=== PATIENT | female | born 1960 | race Caucasian/White ===

== ENCOUNTER 2019-02-10 08:03 | Outpatient (CLI) | payer BC ==
--- NOTE | 2019-02-10 09:13 | MMO ---
Bilateral MAMMO Bilat Diag DDI+LJ. CLINICAL HISTORY: Patient is 58 years old and is seen for diagnostic exam. The patient has the following family history of breast cancer: paternal aunt. The patient has a history of lobular carcinoma in November,; Excisional Biopsy procedure revealed invasive mammary carcinoma with lobular features in the left breast in November, and invasive mammary carcinoma with lobular features in the left breast in October,. The patient has a history of right Breast reduction in August,, left Ultrasound Guided Core Biopsy in October, - malignant and left Lumpectomy in October, - malignant. VIEWS: The views performed were: bilateral craniocaudal with tomosynthesis; bilateral mediolateral oblique with tomosynthesis; and bilateral mediolateral. FILMS COMPARED: The present examination has been compared to prior imaging studies performed at [facility] on 08/02/2014, 11/08/2015, 11/14/2015 and 11/10/2016, and at [facility] on 01/22/2018. MAMMOGRAM FINDINGS: The breasts are heterogeneously dense, which could obscure a lesion on mammography. There are stable post operative changes seen in both breasts. There are no suspicious masses, suspicious calcifications, or new areas of architectural distortion. IMPRESSION: THERE IS NO MAMMOGRAPHIC EVIDENCE OF MALIGNANCY. A ROUTINE FOLLOW-UP MAMMOGRAM IN 1 YEAR IS RECOMMENDED. THE RESULTS OF THIS EXAM WERE SENT TO THE PATIENT. ACR BI-RADS Category 2 - Benign finding MAMMOGRAPHY NOTE: 1. A negative mammogram report should not delay a biopsy if a dominant of clinically suspicious mass is present. 2. Approximately 10% to 15% of breast cancers are not detected by mammography. 3. Adenosis and dense breasts may obscure an underlying neoplasm.
== END 2019-02-10 08:04 | disposition home or self-care (01) ==
LOC: BICMAMMO 08:03
PROVIDERS: ATTEND Internal Medicine Hematology & Oncology
DX: C50.312 Malignant neoplasm of lower-inner quadrant of left female breast (principal)
CPT/HCPCS: 77066; G0279

== ENCOUNTER 2020-03-02 10:09 | Outpatient (CLI) | payer BC ==
--- NOTE | 2020-03-02 11:19 | MMO ---
Bilateral MAMMO Bilat Diag DDI+LJ. CLINICAL HISTORY: Patient is 59 years old and is seen for diagnostic exam. The patient has a history of lobular carcinoma in November, and Excisional biopsy procedure revealed invasive mammary carcinoma with lobular features in the left breast in November,. The patient has a history of right Breast reduction in August,, left Ultrasound Guided Core Biopsy in October, - malignant and left Lumpectomy in October, - malignant. VIEWS: The views performed were: . FILMS COMPARED: The present examination has been compared to prior imaging studies performed at [facility] on 11/10/2016, 02/10/2019 and 03/02/2020, and at [facility] on 01/22/2018. This study has been interpreted with the assistance of computer-aided detection. MAMMOGRAM FINDINGS: The breasts are heterogeneously dense, which could obscure a lesion on mammography. Finding 1: There is a new high density, oval mass measuring 10 millimeters with circumscribed margins seen in the posterior region of the left breast at 3 o'clock. Ultrasound demonstrates a corresponding hypoechoic mass. Finding 2: There are stable post operative changes seen in the left breast. In the right breast, there are no suspicious masses, calcifications or areas of architectural distortion. IMPRESSION: FINDING 1: NEW MASS IN THE LEFT BREAST IS SUSPICIOUS. BIOPSY IS RECOMMENDED. RESULTS AND RECOMMENDATIONS DISCUSSED WITH THE PATIENT AND QUESTIONS ANSWERED. THE RESULTS OF THIS EXAM WERE SENT TO THE PATIENT. ACR BI-RADS Category 4 - Suspicious abnormality - biopsy should be considered MAMMOGRAPHY NOTE: 1. A negative mammogram report should not delay a biopsy if a dominant of clinically suspicious mass is present. 2. Approximately 10% to 15% of breast cancers are not detected by mammography. 3. Adenosis and dense breasts may obscure an underlying neoplasm. Reported by: MIN NAPIER MD Electonically Signed: [id number]
--- NOTE | 2020-03-02 11:23 | MMO ---
Left US Breast Limited Lt. CLINICAL HISTORY: Patient is 59 years old and is seen for . The patient has a history of lobular carcinoma in November, and Excisional biopsy procedure revealed invasive mammary carcinoma with lobular features in the left breast in November,. The patient has a history of right Breast reduction in August,, left Ultrasound Guided Core Biopsy in October, - malignant and left Lumpectomy in October, - malignant. VIEWS: The views performed were: . FILMS COMPARED: The present examination has been compared to prior imaging studies performed at [facility] on 11/10/2016, 02/10/2019 and 03/02/2020, and at [facility] on 01/22/2018. This study has been interpreted with the assistance of computer-aided detection. LEFT BREAST ULTRASOUND FINDINGS: There is a hypoechoic oval solid mass with circumscribed margins measuring 9 millimeters seen in the left breast at 3 o'clock. IMPRESSION: SOLID MASS IN THE LEFT BREAST IS SUSPICIOUS. BIOPSY IS RECOMMENDED. THE RESULTS OF THIS EXAM WERE SENT TO THE PATIENT. ACR BI-RADS Category 4 - Suspicious abnormality - biopsy should be considered MAMMOGRAPHY NOTE: 1. A negative mammogram report should not delay a biopsy if a dominant of clinically suspicious mass is present. 2. Approximately 10% to 15% of breast cancers are not detected by mammography. 3. Adenosis and dense breasts may obscure an underlying neoplasm. Reported by: MIN NAPIER MD Electonically Signed: [id number]
== END 2020-03-02 10:10 | disposition home or self-care (01) ==
LOC: BICMAMMO 10:09
PROVIDERS: ATTEND Internal Medicine Hematology & Oncology
DX: Z08 Encounter for follow-up examination after completed treatment for malignant neoplasm (principal); Z85.3 Personal history of malignant neoplasm of breast
CPT/HCPCS: 77066; G0279

== ENCOUNTER → 2020-03-06 | Day surgery (SDC) | payer BC ==
--- NOTE | 2020-03-06 14:01 | MMO ---
FILMS COMPARED: The present examination has been compared to prior imaging studies performed at [facility] on 02/10/2019 and 03/02/2020, and at [facility] on 01/22/2018. MAMMOGRAM FINDINGS: The breasts are heterogeneously dense, which could obscure a lesion on mammography. There is a biopsy clip seen in the upper-outer region of the left breast. In the right breast, there are no suspicious masses, calcifications or areas of architectural distortion. IMPRESSION: BIOPSY CLIP IN THE LEFT BREAST IS CONFIRMED UTILIZING POST PROCEDURE MAMMOGRAM. Reported by: RACHELLE TRINIDAD MD Electonically Signed: [id number]
--- NOTE | 2020-03-07 07:19 | ULT ---
ULTRASOUND GUIDED LEFT BREAST BIOPSY: HISTORY: The patient has a history of breast cancer. A new nodule was seen at the 3 o'clock position of the l eft breast for which biopsy was recommended. TECHNIQUE: After informed consent was obtained, the patient was prepped and draped in a normal sterile fashion. Local anesthesia was obtained with 1% Xylocaine mixed with sodium bicarb. Biopsy was performed from a lateral approach. The lesion is a mildly hypoechoic poorly circumscribed lesion measuring 10 mm i n maximum dimension. Using a 14 gauge biopsy gun, a total of 4 core biopsies were performed. Biopsy clip was subsequently deployed. A mammogram of the area is difficult to visualize, but biopsy clip appears to be in appropriate location for the previous mammographic abnormality. The patient tolerat ed the procedure well. There are no immediate complications. IMPRESSION: Ultrasound-directed core biopsy of a 1 cm left breast mass located at the 3 o'clock position 6 cm fro m the nipple.
== END ==
LOC: BICULT 12:31
PROVIDERS: ATTEND Internal Medicine Hematology & Oncology
PROC: 0H9U3ZX Drainage of Left Breast, Percutaneous Approach, Diagnostic (ICD-10-PCS; principal; 2020-03-06)
DX: C50.212 Malignant neoplasm of upper-inner quadrant of left female breast (principal); Z17.0 Estrogen receptor positive status [ER+]
CPT/HCPCS: 19083; 88305

== ENCOUNTER 2021-05-31 08:19 | Outpatient (CLI) | payer BC | END 2021-05-31 08:20 | disposition home or self-care (01) | LOC: BICMAMMO 08:19 | PROVIDERS: ATTEND Specialist | DX: Z08 Encounter for follow-up examination after completed treatment for malignant neoplasm (principal); Z85.3 Personal history of malignant neoplasm of breast | CPT/HCPCS: 77066; G0279 ==

== ENCOUNTER 2022-02-17 15:07 | Outpatient (CLI) | payer BC | END 2022-02-17 15:08 | disposition home or self-care (01) | LOC: BICMAMMO 15:07 | PROVIDERS: ATTEND Advanced Practice Midwife | DX: Z13.820 Encounter for screening for osteoporosis (principal) | CPT/HCPCS: 77080 ==

== ENCOUNTER 2023-07-31 12:57 | Outpatient (CLI) | payer BC | END 2023-07-31 12:58 | disposition home or self-care (01) | LOC: BICMAMMO 12:57 | PROVIDERS: ATTEND Internal Medicine Hematology & Oncology | DX: Z08 Encounter for follow-up examination after completed treatment for malignant neoplasm (principal); Z85.3 Personal history of malignant neoplasm of breast | CPT/HCPCS: 77063; 77067 ==

== ENCOUNTER 2024-10-19 14:24 | Outpatient (CLI) | payer BC | END 2024-10-19 14:25 | disposition home or self-care (01) | LOC: BICMAMMO 14:24 | PROVIDERS: ATTEND Internal Medicine | DX: Z12.31 Encounter for screening mammogram for malignant neoplasm of breast (principal); R92.1 Mammographic calcification found on diagnostic imaging of breast; Z80.3 Family history of malignant neoplasm of breast; Z86.000 Personal history of in-situ neoplasm of breast; Z98.890 Other specified postprocedural states | CPT/HCPCS: 77063; 77067 ==

== ENCOUNTER 2024-10-27 13:31 | Outpatient (CLI) | payer BC | END 2024-10-27 13:32 | disposition home or self-care (01) | LOC: BICMAMMO 13:31 | PROVIDERS: ATTEND Internal Medicine | DX: R92.1 Mammographic calcification found on diagnostic imaging of breast (principal) | CPT/HCPCS: G0279 ==

== ENCOUNTER → 2024-11-18 | Day surgery (SDC) | payer BC | LOC: MAMMO 06:53 | PROVIDERS: ATTEND Internal Medicine | PROC: 0HH Skin and Breast, Insertion (ICD-10-PCS; principal; 2024-11-18) | DX: C50.211 Malignant neoplasm of upper-inner quadrant of right female breast (principal); R92.0 Mammographic microcalcification found on diagnostic imaging of breast | CPT/HCPCS: 19081; 76098; 88305 ==

== ENCOUNTER 2025-07-26 15:16 | Outpatient (CLI) | payer BC | END 2025-07-26 15:17 | disposition home or self-care (01) | LOC: BICMAMMO 15:16 | PROVIDERS: ATTEND Internal Medicine Hematology & Oncology | DX: C50.811 Malignant neoplasm of overlapping sites of right female breast (principal); C50.312 Malignant neoplasm of lower-inner quadrant of left female breast; Z79.818 Long term (current) use of other agents affecting estrogen receptors and estrogen levels | CPT/HCPCS: 77080 ==